=== PATIENT | male | born 1990 | race Caucasian/White ===

== ENCOUNTER 2022-11-16 13:47 | Emergency (ER) | payer OTHER ==
[~2022-11-16] VITALS: Ht 180.3 cm; Wt 88.5 kg
[2022-11-16] MEDS ORDERED: ULTRAM50 MG PO (20:52)
[2022-11-16] MEDS ORDERED: ONDANSETRON ODT8 MG PO (20:52)
== END 2022-11-16 21:25 | disposition home or self-care (01) ==
LOC: ED 13:47
DX: K80.50 Calculus of bile duct without cholangitis or cholecystitis without obstruction (principal)
CPT/HCPCS: 36415; 74177; 80053; 81003; 83690; 85025; 99284-25; A9270